=== PATIENT | male | born 1935 | race Asian ===

== ENCOUNTER → 2019-12-08 | Outpatient (CLI) | payer OTHER | LOC: SJCVC 10:15 | PROVIDERS: ATTEND Internal Medicine Cardiovascular Disease | DX: I11.0 Hypertensive heart disease with heart failure (principal); I50.32 Chronic diastolic (congestive) heart failure; R94.31 Abnormal electrocardiogram [ECG] [EKG]; I44.0 Atrioventricular block, first degree; E78.00 Pure hypercholesterolemia, unspecified; R60.9 Edema, unspecified; I42.9 Cardiomyopathy, unspecified; E78.5 Hyperlipidemia, unspecified; M19.90 Unspecified osteoarthritis, unspecified site; G20 Parkinson's disease; Z87.891 Personal history of nicotine dependence ==

== ENCOUNTER 2020-03-24 09:54 | Inpatient (IN) | payer OTHER ==
[~2020-03-24] VITALS: Ht 185.4 cm; Wt 104.4 kg
[2020-03-24 10:39] VITALS: BP 124/62
[2020-03-24 10:57] LABS: ABSOLUTE NEUTROPHILS 7.2 thou/uL (1.4-8.2); BASOPHILS 0.3 % (0.0-2.0); EOSINOPHILS 0.1 % (0.0-3.0); HEMATOCRIT 39.2 % (42.0-52.0); HEMOGLOBIN 13.4 gm/dL (14.0-18.0); LYMPHOCYTES 16.6 % (24.0-44.0); MCH 30.5 pg (26.0-34.0); MCHC 34.1 g/dL (28.0-37.0); MCV 89.5 fL (80.0-100.0); MONOCYTES 11.7 % (1.0-8.0); PLATELET COUNT 133 thou/uL (150-400); POLYS 71.3 % (36.0-66.0); RBC 4.38 mil/uL (4.50-6.00); RDW 14.5 % (10.5-14.5); WBC 10.1 thou/uL (4.0-11.0)
[2020-03-24 11:08] LABS: CALCIUM 9.9 mg/dL (8.5-10.1); CREATININE 1.8 mg/dL (0.7-1.3)
[2020-03-24 11:18] LABS: ALBUMIN 3.4 g/dL (3.4-5.0); TOTAL BILIRUBIN 1.7 mg/dL (0.2-1.0)
[2020-03-24 11:22] LABS: TROPONIN-I 0.86 ng/mL (<0.06)
--- NOTE | 2020-03-24 12:27 | EKG ---
[address] [address] ELECTROCARDIOGRAM REPORT Name: ENE MANZO Room #: 170-5 ADM IN M.R.#: [id number] Admission: 03/24/20 Attend Phys: Patrick Dorantes MD Discharge: Date of : 31 Report #: [id number] [facility] ED Test Date: 2020-03-24 Test Time: 10:53:37 Pat Name: ENE MANZO Department: Room: 170 Gender: M Maintenance Inspector: TORI : 1935 Requested By: Bennie Grace Order Number: [id number] MD: Arcadio Lopez Measurements Intervals [place] Rate: 84 P: 42 NV: 198 QRS: -102 QRSD: 169 T: 6 QT: 399 QTc: 472 Interpretive Statements Sinus rhythm RBBB and LAFB No previous ECG available for comparison Electronically Signed On 03-24-2020 12:27:33 REHABILITATION COORDINATOR by Arcadio Lopez [email or web address] <ELECTRONICALLY SIGNED> By: Arcadio Lopez MD, [facility] 03/24/20 1227 1053 1053 Arcadio Lopez MD, FACC /EPI
[2020-03-24] MEDS ORDERED: CARBIDOPA-LEVO1 EAC8 PO (12:30)
[2020-03-24] MEDS ORDERED: CARVEDILOL12.5 MG PO (12:30)
[2020-03-24] MEDS ORDERED: OLMESARTAN MEDOX5 MG PO (12:31)
[2020-03-24] MEDS ORDERED: ROPINIROLE HCL0.5 MG PO (12:31)
[2020-03-24] MEDS ORDERED: LOPRESSOR50 PO (12:31)
[2020-03-24] MEDS ORDERED: DONEPEZIL HCL 55 M1 PO (12:32)
[2020-03-24] MEDS ORDERED: LIPITOR 40 MG T40 M1 PO (12:32)
[2020-03-24] MEDS ORDERED: IMDUR 60 MG TAB60 M1 PO (12:32)
[2020-03-24] MEDS ORDERED: TORSEMIDE5 MG PO (12:33)
[2020-03-24] MEDS ORDERED: NITROSTAT0.4 M1 SUBLING (12:33)
[2020-03-24 13:48] LABS: FOLIC ACID 18.6 ng/mL (8.6-58.9)
[2020-03-24 15:10] LABS: HEMOGLOBIN 13.6 gm/dL (14.0-18.0); MCH 30.1 pg (26.0-34.0); MCHC 33.2 g/dL (28.0-37.0); MCV 90.6 fL (80.0-100.0); RBC 4.52 mil/uL (4.50-6.00); RDW 14.9 % (10.5-14.5); WBC 9.6 thou/uL (4.0-11.0)
[2020-03-24 15:27] LABS: APTT 81.6 Seconds (24.5-32.8); INR 1.1; PROTIME 11.5 Seconds (9.3-11.4)
--- NOTE | 2020-03-24 16:03 | NUR ---
DR. WHELAN PGD AT 1520 WITH NO RETURN CALL.
[2020-03-24 20:59] VITALS: BP 120/44
[2020-03-24 21:11] VITALS: BP 120/44
[2020-03-24 21:40] VITALS: BP 145/66
[2020-03-24 23:38] VITALS: BP 147/75
--- NOTE | 2020-03-24 23:45 | NUR ---
PT ADMITTED TO ROOM 207, CONDOM CATHETER PLACED AFTER PT C/O BEING INCON'T, VSS, BG TAKEN, EDUCATION DONE QUESTIONS ANSWERED, TALKED TO PT'S SPOUSE AND UPDATED AND GIVEN CONTACT INFORMATION, HEPARIN GTT INFUSING IN R FA, NO C/O PAIN, WILL CON'T TO MONITOR PER PPOC.
[2020-03-25] VITALS (15 sets, daily range): BP systolic 111–154; BP diastolic 60–83
[2020-03-25 05:30] LABS: ABSOLUTE NEUTROPHILS 7.2 thou/uL (1.4-8.2); BASOPHILS 0.1 % (0.0-2.0); HEMATOCRIT 41.6 % (42.0-52.0); HEMOGLOBIN 14.2 gm/dL (14.0-18.0); LYMPHOCYTES 18.5 % (24.0-44.0); MCH 30.7 pg (26.0-34.0); MCHC 34.1 g/dL (28.0-37.0); MCV 90.2 fL (80.0-100.0); MONOCYTES 3.1 % (1.0-8.0); PLATELET COUNT 147 thou/uL (150-400); POLYS 78.3 % (36.0-66.0); RBC 4.61 mil/uL (4.50-6.00); WBC 9.2 thou/uL (4.0-11.0)
[2020-03-25 05:40] LABS: CREATININE 1.8 mg/dL (0.7-1.3); MAGNESIUM 2.3 mg/dL (1.8-2.4); POTASSIUM 4.2 mmol/L (3.5-5.1)
[2020-03-25 05:43] LABS: CHOLESTEROL 126 mg/dL (<200); HDL CHOLESTEROL 43 mg/dL (>40); LDL CHOLESTEROL 70 mg/dL (<100); TC:HDL 2.9 Ratio (Not establshd); TRIGLYCERIDE 67 mg/dL (<150); VLDL 13 mg/dL (<40)
[2020-03-25 05:58] LABS: SERUM ASSESSMENT Clear
--- NOTE | 2020-03-25 10:19 | 2DMMODE ---
[facility] [place] [address] 2 D/M-MODE ECHOCARDIOGRAM Name: ENE MANZO Room #: 207-P ADM IN M.R.#: [id number] Admission: 03/24/20 Attend Phys: Patrick Dorantes MD Discharge: Date of : 31 Report #: [id number] THIS REPORT FOR: cc: Dinora Bullock MD, Julie MD Park,George Palomares MD ~ APPROVED REPORT Study performed: 03/25/2020 08:18:50 EXAM: Comprehensive 2D, Doppler, and color-flow Echocardiogram Patient Location: Bedside Room #: 207 Status: routine BSA: 2.29 HR: 72 bpm BP: 135/67 mmHg Rhythm: RBBB/Frequent PVCs Other Information Study Quality: Adequate/patient flat on back Technically limited study due to heavy breathing lung artifact. Indications Short of breath, chest pain, elevated troponin, NSTEMI, diastolic HF. Hx: HTN, DM. 2D Dimensions RVDd: 49.31 mm IVSd: 14.37 (7-11mm) LVOT Diam: 23.32 (18-24mm) LVDd: 50.25 mm PWd: 13.61 (7-11mm) Ascending Ao: 36.54 (22-36mm) LVDs: 34.20 (25-40mm) Aortic Root: 35.93 mm Volumes Left Atrial Volume (Systole) Single Plane 4CH: 48.20 mL Single Plane 2CH: 46.76 mL LA ESV Index: 22.00 mL/m2 Aortic Valve AoV Peak Zak.: 1.79 m/s [facility] [address] [place] [address] 2 D/M-MODE ECHOCARDIOGRAM Name: ANAISJENAROENE Room #: 207-P [facility] IN ..#: [id number] Admission: 03/24/20 Attend Phys: Patrick Dorantes MD Discharge: Date of : 31 Report #: [id number] Peak Gr.: 13.11 mmHg LVOT Max P.24 mmHg LVOT Max V: 0.90 m/s KJ Vmax: 2.14 cm2 Mitral Valve E/A Ratio: 0.7 MV Decel. Time: 218.52 ms MV E Max Zak.: 0.69 m/s MV A Zak.: 0.98 m/s MV PHT: 63.37 ms IVRT: 107.27 ms Pulmonary Valve PV Peak Zak.: 0.99 m/s PV Peak Gr.: 3.89 mmHg Tricuspid Valve TR Peak Zak.: 2.83 m/s RAP Estimate: 15.00 mmHg TR Peak Gr.: 32.10 mmHg PA Pressure: 47.00 mmHg Left Ventricle The left ventricle is normal size. Paradoxical septal motion consistent with conduction abnormality. Mild concentric left ventricular hypertrophy. Left ventricular systolic function is normal. LVEF is 55%. Mild diastolic dysfunction is present (impaired relaxation pattern). Right Ventricle Right ventricle is mildly dilated. The right ventricular systolic function is normal. Atria The left atrium size is normal. Right atrium is mildly dilated. Aortic Valve The Aortic valve is moderately sclerotic. No aortic regurgitation is present. There is no aortic valvular stenosis. Mitral Valve Mitral valve leaflets are mildly calcified. There is no mitral valve regurgitation noted. No evidence of mitral valve stenosis. Tricuspid Valve The tricuspid valve is normal in structure. Mild tricuspid regurgitation. Estimated PAP is 38mmHg. [facility] [address] [place] [address] 2 D/M-MODE ECHOCARDIOGRAM Name: ENE MANZO Room #: 207-P [facility] IN M.R.#: [id number] Admission: 03/24/20 Attend Phys: Patrick Dorantes MD Discharge: Date of : 33 Report #: [id number] Pulmonic Valve The pulmonary valve is normal in structure. There is no pulmonic valvular regurgitation. Great Vessels The aortic root is normal in size. The ascending aorta is normal in size. IVC is dilated and collapses <50% with inspiration. Pericardium There is no pericardial effusion. <Conclusion> The left ventricle is normal size. Mild concentric left ventricular hypertrophy. Left ventricular systolic function is normal. Mild diastolic dysfunction is present (impaired relaxation pattern). Right ventricle is mildly dilated. The left atrium size is normal. The Aortic valve is moderately sclerotic. Mitral valve leaflets are mildly calcified. Mild tricuspid regurgitation. Estimated PAP is 38mmHg. <ELECTRONICALLY SIGNED> By: George Arrieta MD 03/25/20 1018 1018 1018 George Arrieta MD /INF
--- NOTE | 2020-03-25 15:56 | CATHLAB ---
[facility] [place] [address] INVASIVE PROCEDURE REPORT Name: ENE MANZO Room #: 207-P ADM IN M.R.#: [id number] Admission: 03/24/20 Attend Phys: Patrick Dorantes MD Discharge: Date of : 33 Report #: [id number] THIS REPORT FOR: cc: Dinora Bullock MD, Julie MD Park, Jin S. MD ~ APPROVED REPORT Study performed: 03/25/2020 11:42:00 Patient Details Patient Status: In-Patient Room #: 207 The patient is a 85 year-old male Event Personnel George Arrieta Soldering Machine Tender, Mallory Benson RN RN, Charu Osborn RN RN, Bradley Witt RTR Scrmat, Isaura Bryan RTR Monitor Procedures Performed Left Heart Cath w/or w/o Coronaries [id number] [facility] Art Access - R femoral artery* Hemostasis w/ Mynx 94990 Initial Mod Sed Same Phys/QHP Gr5y 988352 37199 Mod Sed Same Phys/QHP Ea 895855 Indication Non-STEMI , Dyspnea, Chest pain Risk Factors Hypercholesterolemia, Hypertension Procedure Narrative The Right Groin^ was infiltrated with 1% Lidocaine subcutaneous anesthesia. A PINNACLE 5FR Sheath #[id number] sheath was inserted into the RFA^. Coronary angiography was performed using coronary diagnostic catheters. The right coronary system was accessed and visualized with a JR4 catheter. The left coronary system was accessed and visualized with a JL4 catheter. The left ventricle was accessed and visualized with a JR4 catheter. Left ventricular/Aortic Valve gradient assessed via catheter pullback. Left ventriculogram was performed in 30 degree projection. Closure device was deployed with a Fr MYNXGRIP 5F #[id number]. There was no hematoma. Intraoperative Conscious Sedation [facility] [address] [place] [address] INVASIVE PROCEDURE REPORT Name: ENE MANZO Room #: 207-P [facility] IN ..#: [id number] Admission: 03/24/20 Attend Phys: Patrick Dorantes MD Discharge: Date of : 33 Report #: [id number] Sedation start time: 12:27 Case end Time: 13:07 Fentanyl 50 mcg Versed 1 mg Fluoro Time: 3.20 minutes Dose: DAP 6405.83 cGycm2 723 mGy Contrast Type and Amount: Visipaque 90 ml Coronary Angiography The patient's coronary anatomy is left dominant. Diagnostic Cath Left Main Left main artery is a large-caliber vessel, patent with no flow-limiting lesions. LAD The LAD is a moderate to large caliber vessel, traverses the anterior wall and wraps around the apex. There is mild diffuse disease in the proximal and mid segments, 20%. Diagonal 1 This is a moderate-sized caliber vessel, patent with no flow-limiting lesions. Circumflex This is a moderate-sized caliber vessel, dominant as it supplies the left PDA. There is mild to moderate diffuse disease in the distal segment, 40%. OM1 This is a patent vessel, with no flow-limiting lesions. OM2 This is a moderate-sized caliber vessel, with mild disease proximally. Divides into 2 branches. OM3 This is a small caliber vessel, patent with no flow-limiting lesions. L PDA Appears to be occluded in the mid segment. Right Coronary This is a small, nondominant vessel with no flow-limiting lesions. Left Ventriculography Left Ventriculography was not performed. Ejection Fraction was >55% based off patient's Echocardiogram. An LVEDP was measured and there is no gradient across the outflow tract. Hemodynamics The aortic pressure is 114/66 mmHg with a mean of 87 mmHg. The left ventricular pressure is 135/11 mmHg with a mean of mmHg. The left ventricular end diastolic pressure is 25 mmHg. Pullback from the left ventricle to the aorta revealed no gradient across the aortic valve. Conclusion 1. There is mild disease in the proximal and mid segments of the [address] [address] INVASIVE PROCEDURE REPORT Name: ANAISENE Room #: 207-P [facility] IN M.R.#: [id number] Admission: 03/24/20 Attend Phys: Patrick Dorantes MD Discharge: Date of : 33 Report #: [id number] LAD. 2. The left circumflex artery is a dominant vessel, with moderate diffuse disease in the distal segment. 3. There appears to be an occlusion in the mid segment of the left PDA, probable cause of the non-ST elevation MS. 4. There is normal LV systolic function. 5. Recommend aggressive risk factor management and guideline directed medical therapy. <ELECTRONICALLY SIGNED> By: George Arrieta MD 03/25/20 1556 1556 1556 George Arrieta MD /INF
--- NOTE | 2020-03-25 16:00 | NUR ---
Case opened to follow for dc planning. Pt admitted from home with spouse for NSTEMI. 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 PT/OT angela pending. Spoke with pt's spouse Maya and she reports he is very weak and is normally able to tx and walk with a rwalker in side their ranch style home. They have 4 steps to enter. No other dme. He was at [facility] about 5 months ago after having pneumonia and he came home with hh but she can not recall the agency name. She is interested in him going to skilled rehab again as he is "very weak". She would like a referral sent to [facility]. Dc airport planner to fax referral. Dc timeframe 1-2 day pending his plan of care. Message sent to the [facility] stanley Aleman. Will follow.
--- NOTE | 2020-03-25 16:31 | NUR ---
FAXED REFERRAL TO [facility] RECEIVED CONFIRMATION AND LEFT MSG WITH ADM AT FACILITY. STILL NEED TO FAX THERAPY NOTES WILL F/U WITH FACILITY ON SATURDAY.
--- NOTE | 2020-03-25 20:19 | NUR ---
PT CARE ASSUMED AT 0700. ASSESSMENTS CHARTED. MEDICATIONS CHARTED. LFA IV. CONDOM CATHETER. PT TO MUSIC PUBLICIST AT 1125. RT GROIN, MYNX CLOSURE, C/D/I. HEMOSTASIS 1330. NPO. HEPARIN D/C'D.
[2020-03-26 03:03] LABS: HEMATOCRIT 40.5 % (42.0-52.0); HEMOGLOBIN 13.3 gm/dL (14.0-18.0); MCH 29.5 pg (26.0-34.0); MCHC 32.8 g/dL (28.0-37.0); MCV 90.1 fL (80.0-100.0); RBC 4.5 mil/uL (4.50-6.00); RDW 15.1 % (10.5-14.5)
[2020-03-26 03:20] LABS: CALCIUM 9.2 mg/dL (8.5-10.1); CREATININE 1.4 mg/dL (0.7-1.3); POTASSIUM 5.1 mmol/L (3.5-5.1)
[2020-03-26 04:30] VITALS: BP 126/70
--- NOTE | 2020-03-26 04:50 | NUR ---
PT IS ALERT AND ORINTED X4. LUNGS ARE CLEAR. DENIES ANY PAIN ISSUES AT THIS TIME. RIGHT MINYX GROIN SITE NO EDMA OR BRUISION NOTED. CONTINUE ONGOING NURSING CARE AT THIS TIME WITH POSSIBLE DISCHARGE TODAY. CALL LIGHT WITHIN REACH IF NEEDS ASSISTANCE. NO ISSUES OR CONCERNS NOTED AT THIS TIME
[2020-03-26 08:00] VITALS: BP 139/80
[2020-03-26 11:55] VITALS: BP 100/52
[2020-03-26 16:50] VITALS: BP 109/46
--- NOTE | 2020-03-26 19:47 | NUR ---
ASSUMED CARE OF PT AT SHIFT CHANGE. ASSESSMENTS CHARTED. MEDS GIVEN PER MAY. PT A&OX3-4. NO C/O PAIN OR DISTRES DURING SHIFT. PLAN TO GO TO [facility] AT ON SATURDAY.
[2020-03-26 20:00] VITALS: BP 152/77
[2020-03-27 03:14] LABS: ABSOLUTE NEUTROPHILS 9.1 thou/uL (1.4-8.2); BASOPHILS 0.1 % (0.0-2.0); HEMATOCRIT 38.9 % (42.0-52.0); LYMPHOCYTES 17.3 % (24.0-44.0); MCH 29.7 pg (26.0-34.0); MCHC 33.4 g/dL (28.0-37.0); MCV 89.1 fL (80.0-100.0); MONOCYTES 10.4 % (1.0-8.0); PLATELET COUNT 166 thou/uL (150-400); POLYS 72.2 % (36.0-66.0); RBC 4.37 mil/uL (4.50-6.00); RDW 15.1 % (10.5-14.5); WBC 12.6 thou/uL (4.0-11.0)
[2020-03-27 03:40] LABS: ALBUMIN 2.8 g/dL (3.4-5.0); CALCIUM 9.2 mg/dL (8.5-10.1); CREATININE 1.5 mg/dL (0.7-1.3); MAGNESIUM 2.1 mg/dL (1.8-2.4); PHOSPHORUS 1.4 mg/dL (2.5-4.9); POTASSIUM 4.3 mmol/L (3.5-5.1); TOTAL BILIRUBIN 1.2 mg/dL (0.2-1.0); TOTAL PROTEIN 7.2 g/dL (6.4-8.2)
--- NOTE | 2020-03-27 03:57 | NUR ---
PT IS ALERT AND ORIENTED X 3 FORGETFULL AT TIMES WITH CARE. LUNGS ARE CLEAR ON ROOM AIR GETS BREATHING TREATMENTS. RIGHT GROIN SITE CLEAN DRY INTACT NO HEMATOMA NOTED. DENIES ANY COMPLAINTS OF PAIN. PT IS INCONTINENT HAS A CONDOM CATH ON FOR CARE. ABDOMEN IS ROUND BOWEL SOUNDS ACTIVE. CALL LIGHT WITHIN REACH IF NEEDS ASSISTANCE PER NURSING
[2020-03-27 04:00] VITALS: BP 123/72
[2020-03-27 07:55] VITALS: BP 112/60
[2020-03-27 11:40] VITALS: BP 117/63
--- NOTE | 2020-03-27 12:49 | EKG ---
[address] [address] ELECTROCARDIOGRAM REPORT Name: ENE MANZO Room #: 207- ADM IN M.R.#: [id number] Admission: 03/24/20 Attend Phys: Patrick Dorantes MD Discharge: Date of : 33 Report #: [id number] [facility] Test Date: 2020-03-27 Test Time: 09:06:31 Pat Name: ENE MANZO Department: Room: 207 P Gender: M [place]: EMMA : 1935 Requested By: Nilson Lnyn Order Number: [id number] MD: Nilson Lynn Measurements Intervals [place] Rate: 88 P: 42 KS: 199 QRS: -96 QRSD: 157 T: -14 QT: 407 QTc: 493 Interpretive Statements Sinus rhythm RBBB and LAFB Compared to ECG 03/24/2020 10:53:37 No significant changes Electronically Signed On 03-27-2020 12:48:45 TELEGRAPHIC TYPEWRITER OPERATOR by Nilson Lynn [email or web address] <ELECTRONICALLY SIGNED> By: Nilson Lynn MD, [facility] 03/27/20 1248 D: 01/905 5 Nilson Lynn MD, FACC /EPI
[2020-03-27 15:35] VITALS: BP 113/62
--- NOTE | 2020-03-27 18:07 | NUR ---
ASSUMED PATIENT CARE AT 0700. ALERT TO SELF. FLAT. POOR APPETITE. REFUSED OUT OF BED TO CHAIR. PULLING OFF EVERYTHING AT 1700. DENIES CHEST PIAN. NOT TOWARDS POC GOALS.
[2020-03-27 20:38] VITALS: BP 145/53
[2020-03-28 03:19] LABS: ABSOLUTE NEUTROPHILS 7.7 thou/uL (1.4-8.2); BASOPHILS 0.2 % (0.0-2.0); EOSINOPHILS 0.3 % (0.0-3.0); HEMATOCRIT 41.8 % (42.0-52.0); HEMOGLOBIN 13.8 gm/dL (14.0-18.0); LYMPHOCYTES 17.9 % (24.0-44.0); MCH 29.8 pg (26.0-34.0); MCV 90.3 fL (80.0-100.0); MONOCYTES 9.1 % (1.0-8.0); PLATELET COUNT 168 thou/uL (150-400); POLYS 72.5 % (36.0-66.0); RBC 4.63 mil/uL (4.50-6.00); RDW 15.2 % (10.5-14.5); WBC 12.4 thou/uL (4.0-11.0)
[2020-03-28 04:00] VITALS: BP 136/54
--- NOTE | 2020-03-28 04:28 | NUR ---
PATIENTS CARES WERE ASSUMED AT SHIFT CHANGE. PATIENT WAS ASSESSED AND MEDS WERE PASSED. PATIENT IS CONFUSED AND INCONTENT OF B&B. THIS PATIENT WAS GIVEN A BATH AND FRESH LINEN THIS SHIFT. WILL CONTINUE TO MONITOR. THE BED IS IN A LOW AND LOCKED POSITION
[2020-03-28 08:10] VITALS: BP 139/64
--- NOTE | 2020-03-28 10:37 | NUR ---
Patient sleeping soundly. Sp with . [facility] where patient was rec rec skilled care in past is only accepting COVID positive patients. agreeable to referral to [facility]. DC community development planner to fax referral.
--- NOTE | 2020-03-28 11:01 | NUR ---
Spoke with [facility] they are only accepti
[2020-03-28 11:15] VITALS: BP 101/59
[2020-03-28 15:50] LABS: ALBUMIN 2.4 g/dL (3.4-5.0); CALCIUM 9.5 mg/dL (8.5-10.1); CREATININE 1.6 mg/dL (0.7-1.3); MAGNESIUM 2.4 mg/dL (1.8-2.4); PHOSPHORUS 3.1 mg/dL (2.6-4.7); POTASSIUM 4.3 mmol/L (3.5-5.1); TOTAL BILIRUBIN 1.4 mg/dL (0.2-1.0)
[2020-03-28 16:25] VITALS: BP 132/95
--- NOTE | 2020-03-28 16:38 | NUR ---
spoke with regarding [facility] does not accept insurance. She is agreeable to referral to [facility]. She plans to talk to family regarding other facilities.
--- NOTE | 2020-03-28 19:44 | NUR ---
ASSUMED CARE OF PT AT SHIFT CHANGE. ASSESSMENTS CHARTED. MEDS GIVEN PER MAY. PT A&OX3, NOT SURE OF TIME. NO C/O PAIN OR DISTRESS DURING SHIFT. PT SLEPT MOST OF SHIFT. REMAINS INCONTINENT OF BOWEL AND BLADDER. CM STILL LOOKING FOR PLACEMENT. WILL CONTINUE TO MONITOR AND FOLLOW POC./
[2020-03-28 20:04] VITALS: BP 132/95
[2020-03-28 21:01] VITALS: BP 122/66
[2020-03-29] VITALS (7 sets, daily range): BP systolic 122–148; BP diastolic 63–82
--- NOTE | 2020-03-29 04:50 | NUR ---
PATIENTS CARES WERE ASSUMED AT SHIFT CHANGE. PATIENT WAS ASSESSED AND MEDS WERE PASSED. PATIENT IS A JOVIAL MAN AND HE HAS LITTLE NEEDS THIS SHIFT. HE DID SLEEP THE MAJORITY OF THIS SHIFT. HOURLY ROUNDS WERE DONE. THE BED IS IN A LOW AND LOCKED POSITION
[2020-03-29 09:45] LABS: CALCIUM 9.1 mg/dL (8.5-10.1); CREATININE 1.6 mg/dL (0.7-1.3); POTASSIUM 4.6 mmol/L (3.5-5.1)
--- NOTE | 2020-03-29 09:46 | NUR ---
FAXED REFERRAL TO [facility] RECEIVED CONFIRMATION AND LEFT MSG WITH REED IN ADM. DP TO FOLLOW.
--- NOTE | 2020-03-29 13:38 | NUR ---
Yesterday interested in [facility] however they are not accepting patients. [facility] evaled and accepting they are seeking auth. strongly prefers [facility] as she has concerns for COVID in skilled facilites. She has [employer] list to review.
--- NOTE | 2020-03-29 15:37 | NUR ---
PT ALERT AND ORIENTED TIMES FOUR. VSS. SR ON TELE. PT DENIES PAIN. PT WORKED WELL WITH PT/OT TODAY. PT TOLERATES MEDS AND MEALS. PT AT BEDSIDE FOR SOME PART OF THE SHIFT. PT PROGRESSING TOWRADS POC GOALS.
--- NOTE | 2020-03-29 16:33 | NUR ---
PATIENT ACCEPTED TO [facility] HAS WAIVED AUTHORIZATION PROCESS. PATIENT CAN TRANSFER TO ACUTE REHAB IN AM. LEFT MESSAGE FOR TO CALL ME.
--- NOTE | 2020-03-30 01:20 | NUR ---
PATIENTS CARES WERE ASSUMED AT SHIFT CHANGE. PATIENT WAS ASSESSED AND MEDS WERE PASSED. THIS PATIENT IS A PLEASENT MAN. HE DID SLEEP MOST OF THIS SHIFT. NO REQUEST MADE. HOURLY ROUNDS WERE DONE. THE BED IS IN A LOW AND LOCKED POSITION
[2020-03-30 03:37] VITALS: BP 148/78
[2020-03-30 05:20] LABS: HEMOGLOBIN 12.5 gm/dL (14.0-18.0); MCH 29.2 pg (26.0-34.0); MCV 88.5 fL (80.0-100.0); RBC 4.3 mil/uL (4.50-6.00); RDW 15.4 % (10.5-14.5); WBC 15.4 thou/uL (4.0-11.0)
[2020-03-30 07:26] VITALS: BP 143/86
[2020-03-30 07:53] LABS: CREATININE 1.5 mg/dL (0.7-1.3); POTASSIUM 4.6 mmol/L (3.5-5.1)
[2020-03-30] MEDS ORDERED: PREDNISONE 20 M20 M1 PO (07:53)
[2020-03-30] MEDS ORDERED: ADULT LOW DOSE81 MG PO (07:53)
[2020-03-30] MEDS ORDERED: PULMICORT0.5 MG/21 INH (07:53)
--- NOTE | 2020-03-30 10:25 | NUR ---
Paitent to discharge to [facility] today. Patient and notified. no further needs.
[2020-03-30 11:13] VITALS: BP 133/77
== END 2020-03-30 15:13 | DRG 280 ==
LOC: ER 09:54 → 2N 12:24 → EROBS 12:24 → 2N 21:16
PROVIDERS: Emergency Medicine; Internal Medicine; Internal Medicine Cardiovascular Disease; Nurse Practitioner; ADMIT Hospitalist; ATTEND Hospitalist
DX: I21.4 Non-ST elevation (NSTEMI) myocardial infarction (principal); J96.01 Acute respiratory failure with hypoxia; N17.9 Acute kidney failure, unspecified; I50.32 Chronic diastolic (congestive) heart failure; J44.1 Chronic obstructive pulmonary disease with (acute) exacerbation; I13.0 Hypertensive heart and chronic kidney disease with heart failure and stage 1 through stage 4 chronic kidney disease, or unspecified chronic kidney disease; E11.22 Type 2 diabetes mellitus with diabetic chronic kidney disease; N18.9 Chronic kidney disease, unspecified; R53.81 Other malaise; Z20.822 Contact with and (suspected) exposure to COVID-19; E78.5 Hyperlipidemia, unspecified; G20 Parkinson's disease; R35.0 Frequency of micturition; F02.80 Dementia in other diseases classified elsewhere, unspecified severity, without behavioral disturbance, psychotic disturbance, mood disturbance, and anxiety; M19.90 Unspecified osteoarthritis, unspecified site; K59.00 Constipation, unspecified; I25.10 Atherosclerotic heart disease of native coronary artery without angina pectoris; Z87.891 Personal history of nicotine dependence; Z79.82 Long term (current) use of aspirin; Z79.899 Other long term (current) drug therapy
CPT/HCPCS: 10081

== ENCOUNTER 2020-03-30 11:32 | Inpatient (IN) | payer OTHER ==
[~2020-03-30] VITALS: Ht 185.4 cm; Wt 116.9 kg
[~2020-03-30 11:32] MED LIST: ADULT LOW DOSE81 MG PO; CARBIDOPA-LEVO1 EAC8 PO; CARVEDILOL12.5 MG PO; DONEPEZIL HCL 55 M1 PO; IMDUR 60 MG TAB60 M1 PO; LIPITOR 40 MG T40 M1 PO; LOPRESSOR50 PO; NITROSTAT0.4 M1 SUBLING; OLMESARTAN MEDOX5 MG PO; PREDNISONE 20 M20 M1 PO; PULMICORT0.5 MG/21 INH; ROPINIROLE HCL0.5 MG PO; TORSEMIDE5 MG PO
[2020-03-30 15:02] VITALS: BP 147/68
--- NOTE | 2020-03-30 15:45 | NUR ---
NEW ADMISSION FROM . CAME BY WC WITH A HOSP STAFF. PT IS ALERT AND ORIENTATED AND AT TIMES FORGETFUL. ABLE TO FOLLOW COMMANDS, GOOD HAND WEBSPHERE PORTAL ARCHITECT BILATERALLY. R GROIN SITE POST CATH, DRSG DRY AND INTACT. NO HEMATOMA. DENIES ANY PAIN. ADMISSION AND ASSESSMENT DONE. VSS, WEIGHT AND HEIGHT TAKEN ON ADM. PT IS PLESANT AND COOPERATIVE. SLIGHTLY [place]. BLOOD SUGAR CHECKED WITH INSULIN GIVEN WITH DINNER. CALL LIGHT WITHIN REACH. BED ALARM ON. PT ORIENTATED TO ROOM AND PLACE. PT/OT/ST TO EVAL AND TREAT TOMMOROW. CONT TO MONITOR.
[2020-03-30 19:12] VITALS: BP 153/80
--- NOTE | 2020-03-31 00:26 | NUR ---
PT ALERT AND ORIENTED X 4. SITTING ON SIDE OF BED ALL EVENING. BLOOD SUGAR 169 AT HS. INSULIN GIVEN ORDERED. PT INCONT OF URINE AND DOES USE URINAL ALSO WITH ASSISTANCE. PT TAKES MEDS WITH WATER WITHOUT DIFFICULTY. PT DENIES PAIN OR DISCOMFORT. BED ALARM ON FOR SAFETY. PT CHECKED ON HOURLY ROUNDS.
[2020-03-31 05:38] LABS: HEMATOCRIT 39.1 % (42.0-52.0); HEMOGLOBIN 13.1 gm/dL (14.0-18.0); MCH 29.7 pg (26.0-34.0); MCHC 33.5 g/dL (28.0-37.0); MCV 88.7 fL (80.0-100.0); RBC 4.4 mil/uL (4.50-6.00); RDW 15.3 % (10.5-14.5); WBC 13.9 thou/uL (4.0-11.0)
[2020-03-31 05:45] LABS: CALCIUM 10.4 mg/dL (8.5-10.1); CREATININE 1.4 mg/dL (0.7-1.3); POTASSIUM 4.8 mmol/L (3.5-5.1)
--- NOTE | 2020-03-31 11:15 | NUR ---
ASSUMED CARE AT 0700. PT IS ALERT AND ORIENTATED. SLEPT FAIRLY WELL. DENIES ANY PAIN. NOTICED PT IS COUGHING WITH HIS BREAKFAST HORACIO WHILE HE WAS DRINKING. TOÑITO DRILLING ENGINEERING MANAGER NOTED, ORDERS TO RECEIVE A ST TO EVAL AND TREAT AND CXR. PT HAS INTERMITTENT INCONTINENCE. PARTICIPATES IN GAVINO THERAPIES. CONT TO MONITOR.
--- NOTE | 2020-03-31 14:19 | NUR ---
REHAB ASSESSMENT: PT ADMITTED TO ARU W/ DX OF PARKISON'S DISEASE W/MOBILITY DECLINE AND STEMI. PT'S , BANDAR, PRESENT AT BEDSIDE. PT LIVES HOME WITH . THERE ARE 3 STEP TO ENTER HOME AND 0 STAIRS INSIDE, "ALL ON ONE LEVEL." PT HAS CANE AND WALKER. PT HAS HAD SNK AT [facility]" IN THE PAST. BANDAR DOES NOT RECALL IF PT HAD HOME HEALTH IN THE PAST, SHE KEEPS REFERRING TO IN HOME MED [facility] PT'S INSURANCE, [employer], PROVIDED. BANDAR STATED PT WAS ABLE TO DRESS AND BATH HIMSELF PRIOR TO HOSPITALIZATION AND SHE DID COOKING AND CLEANING. BANDAR IS RETIRED AND HOME 01/10, SO TO [facility] AND STATED SHE WOULD BE PROVIDING CARE NEEDED.
[2020-03-31 19:26] VITALS: BP 167/96
--- NOTE | 2020-04-01 01:11 | NUR ---
PATIENT IS INCONTINENT OF URINE IF HE IS TOO SLEEPY TO REACH FOR URINAL. WHEN URINAL OFFERED AND HELD IN PLACE, HE IS ABLE TO VOID 50-75 CC AT A TIME. TURNING SELF IN BED. ABLE TO SWALLOW MEDS ONE AT A TIME WITH GULPS OF WATER.
[2020-04-01 02:06] LABS: GLYCOHEMOGLOBIN (HGB A1C) 6.3 % (4.8-5.6)
[2020-04-01 08:52] VITALS: BP 125/52
--- NOTE | 2020-04-01 12:19 | NUR ---
THIS AM, NOTED TO RUDY BLANCO MID LEVEL JAVA DEVELOPER THAT PT HAD INC IN SWALLOWING CONCERNS THIS AM, NOTABLE TREMORS, AND IS ON SINEMENT 25/100MG ONLY AT HS. PT IS MORE SLEEPY THIS AM, AND ALTHOUGH HE TOOK MEDS WELL, WAS REQUIRING CUES FOR SAFE SWALLOW PER EQUIPMENT MAINTENANCE SUPERVISOR.
--- NOTE | 2020-04-01 12:22 | NUR ---
EDEMA IS 1+ AT RLE, AND PT'S BNP IS ELEVATED. THIS WAS ALSO NOTED TO THE WINDOW SHADE CUTTER AND MOUNTER ON ROUNDS THIS AM.
[2020-04-01 20:00] VITALS: BP 131/61
--- NOTE | 2020-04-01 20:42 | NUR ---
BLOOD SUGAR 312 AT HS. MONTY BARILLAS NP NOTIFIED AND SHE WILL ENTER SLIDING SCALE ORDER FOR PT.
--- NOTE | 2020-04-02 01:02 | NUR ---
PT ALERT AND ORIENTED X 4. 02 SAT 95% AT HS. 02 REMOVED. BLOOD SUGAR 312 AT HS. MONTY BARILLAS NP NOTIFIED WITH ORDER RECEIVED FOR SLIDING SCALE INSULIN. ONLY 6 UNITS LISPRO GIVEN SINCE PT HAD BEEN LOW YESTERDAY MORNING. PT DENIES PAIN OR DISCOMFORT. BED ALARM ON FOR SAFETY. PT APPEARS TO BE SLEEPING ON HOURLY ROUNDS.
[2020-04-02 07:20] VITALS: BP 137/62
--- NOTE | 2020-04-02 10:02 | NUR ---
ASSUMED CARE AT 0700. PATIENT IS ALERT AND ORIENTED X3. PATIENT DC'S, BLENDING SUPERVISOR ARE EQUAL,BUT STILL HAS TREMORS. NEUROLOGY CONSULTED TO SEE TO ADJUST PARKINGSONS MED DOSE. LUNGS ARE DEMINISHED. ABD IS SOFT WITH BSX4. NO BM TODAY. MIRALAX GIVEN. PATIENT IS INCONTINENT OF URINE. UP IN BED FOR BREAKFAST ATE 5% PATIENT STATED "THE FOOD WAS COLD AND DIDN'T TASTE GOOD AND HE WASN'T EATING IT. INSULTIN HELD R/T NOT EATING. FALL AND SAFETY PROTOCOLS IN PLACE. DENIES PAIN. CONTINUES TO PROGRESS SLOWLY TOWARDS D/C GOALS. P.T. GOT PATIENT UP AND 02 AT 2L PER N/C APPLIED WHILE WALKING IN THE [place]. PATIENT CONTINUES TO HAVE L.E. EDEMA. WILL ENCOURAGE PATIENT TO ELEVATE HIS FEET WHILE UP WILL CONTINUE TO MONITER.
--- NOTE | 2020-04-02 14:48 | NUR ---
NEUROLOGY HERE TO SEE PATIENT. MYASTHENIA PANEL LAB ORDERED.
[2020-04-02 19:00] VITALS: BP 149/79
--- NOTE | 2020-04-03 01:37 | NUR ---
TURNING SELF TO SIDE WITH STAFF REMINDING HIM. HAS USED URINAL WITH SUCCESS TONIGHT 100 TO 150 CC AT A TIME. TAKING PILLS WITH GULPS OF WATER, DID MENTION THAT HE DID NOT WANT ANYTHING MORE TO EAT WHEN OFFERED HS SNACK BECAUSE HE WAS GIVEN SLIDING SCALE INSULIN
[2020-04-03 08:13] VITALS: BP 128/59
--- NOTE | 2020-04-03 13:23 | NUR ---
ASSUMED CARE OF PT AT 0720. PT IS A&O TO SELF, PLACE, & SITUATION. DENIES PAIN. IS ON ROOM AIR, BUT REQUIRES 2L WITH AMBULATION. IS STABLE. IS UP WITH 2 ASSIST, GB, WALKER. FALL PRECAUTIONS & HOURLY ROUNDING CONTINUED THIS SHIFT. LABS & VITALS REVIWED. PT IS ABLE TO TURN SELF IN BED. VOIDS PER URINAL. TAKES MEDS WHOLE 1 AT A TIME IN APPLESAUCE/ WITH THINS. PT IS CONTINENT & VOIDS PER URINAL. HAS BILAT LE EDEMA. PT IS CURRENTLY IN ROOM ASLEEP. [facility]. WILL CONTINUE TO MONITOR.
--- NOTE | 2020-04-03 17:56 | NUR ---
PT VOICED CONCERNS REGARDING PT'S EATING. STATED, "WHAT IS GOING ON WITH IS VOICE? I NOTICED THAT HE IS STARTING TO SOUND HOARSE. HE IS ALSO HOLDING FOOD IN HIS MOUTH & SEEMS TO NOT BE ABLE TO SWALLOW. HE HASN'T DONE THIS BEFORE. CAN YOU PLEASE HAVE THE DOCTOR TO CHECK IT OUT?" THIS NURSE INFORMED THE SPOUSE THAT I WOULD INFORM THE NIGHT NURSE OF THE CONCERNS TO PASS ON TO DAY SHIFT. I ALSO INFORMED HER THAT I HAD NOT OBSERVED PT POCKETING FOOD OR HAVING DIFFICULTY SWALLOWING. SPOUSE ALSO REPORTED THAT PT WAS DISCHARGED FROM A DIFFERENT HOSPITAL & WAS NOT GIVEN INSTRUCTIONS ON INSULIN OR HOW TO USE IT. SHE WOULD LIKE EDUCATION ON DIABETES MANAGEMENT WITH INSULIN IF THE PT IS GOING TO BE DISCHARGED HOME WITH IT.
[2020-04-03 19:14] VITALS: BP 107/82
--- NOTE | 2020-04-03 20:16 | NUR ---
PT WAS FOUND TO HAVE WOUNDS ON SROTUM. FIELD UNDERWRITER WAS CONSULTED. IMAGE TAKEN & IS IN THE CHART. SPOUSE IS AWARE & NIGHT NURSE WELL. WILL CONTINUE TO MONITOR. MOISTURE BARRIER APPLIED. PT WAS ALSO FOUND TO HAVE A HEALING WOUND ON RIGHT BUTTOCK. SPOUSE STATED, "HE HAD AN ABSCESS THERE. IT'S OLD".
--- NOTE | 2020-04-04 00:46 | NUR ---
PT ALERT AND ORIENTED X 3. VOIDING PER URINAL WITH ASSIST X 1. INCONT AT TIMES. BLOOD SUGAR 232 AT HS. INSULIN GIVEN ORDERED. SCROTUM RED WITH SORES. BARRIER CREAM APPLIED. PT DENIES PAIN OR DISCOMFORT. BED ALARM ON FOR SAFETY. PT APPEARS TO BE SLEEPING ON HOURLY ROUNDS.
--- NOTE | 2020-04-04 10:18 | NUR ---
WOUND CONSULT; THE SCROTUM IS ESCORIATED LIKELY MASD; MOISTURE ASSOCIATED DERMATITIS. THE PATIENT IS INCONTINENT OF URINE CURRENTLY QUETA A BRIEF. THE SCROTUM IS VERY TENDER TO THE PATIENT. PINK ESCORIATION PRESENT. NO OTHER S/S OF INFECTION. RECOMMEDNATIONS; 1-CLEANSE WITH WARM SOAPY WATER, DRY COMPLETLEY. APPLY ZGUARD BID/PRN. 2-(TURN PATIENT Q2H WHILE IN BED) AND (FLOAT HEELS) 3-LOW AIR LOSS BED PUMP. DISCUSSED WITH RN.
--- NOTE | 2020-04-04 15:44 | NUR ---
LATE ENTRY NOTE 03/31/20: INDEPENDENT WITH SELF-CARE COGNITION LEVEL: NEEDS HELP ADMISSION: EATING: SET-UP ORAL CARE: MIN A TOILETING: MIN A SHOWER/BATHING: MIN A UPPER BODY DRESSING: SUP A LOWER BODY DRESSING: MOD A FOOTWEAR: MOD A TOILET TRANSFER: MIN A DISCHARGE: EATING: CGA/SBA ORAL CARE: CGA/SBA TOILETING: CGA/SBA SHOWER/BATHE: CGA/SBA UPPER BODY DRESSING: CGA/SBA LOWER BODY DRESSING: CGA/SBA FOOTWEAR: CGA/SBA TOILET TRANSFER: CGA/SBA
[2020-04-04 19:30] VITALS: BP 136/64
--- NOTE | 2020-04-04 20:10 | NUR ---
Assumed Pt care at 0700. Pt was in his room awake. Pt was alert and oriented 3x. pT DENIES PAIN. ASSESSMENT ARE COMPLETED AND VSS. PT RECEIVED 4 UNIT OF INSULIN SHOT TWICE. ONE DURING LUNCH AND DINNER. PT WAS CALM AND CO-OPERATIVE. PT TOOK MEDICATION WHOLE WITH APPLE SAUCE. WOUND CARE TO SCROTUM Zguard was applied to scrotum. Pt can be incontinent at times. will continue to monitor.
--- NOTE | 2020-04-05 01:51 | NUR ---
INCOTINENCE CARE, PATIENT USES, BUT USUALLY SPILLS, URINAL. Z-GUARD AND A LITTLE BIT OF MOISTURE BARRIER TO SCROTUM. LEGS REMAIN EDEMATOUS. SSI FOR BLOOD SUGAR OF 185, DECLINES HS SNACK. O2 SAT= 91% PRIOR TO BREATHING TREATMENT, 96% AFTERWARDS.
[2020-04-05 07:15] VITALS: BP 128/70
--- NOTE | 2020-04-05 09:45 | NUR ---
ASSUMED CARE AT 0700. PATIENT IS ALERT AND ORIENTED X3. PATIENT DC'S, COMMUNITY ENGAGEMENT SPECIALIST ARE EQUAL. LUNGS ARE DEMINISHED. 02 AT 2L NEEDED TO KEEP SATS >94%. UP IN THE W/C FOR BREAKFAST. PLAN CXR AT 1100 R/T SOA. ABD IS SOFT WITH BSX4. PATIENT IS INCONTINENT OF URINE. FALL AND SAFETY PROTOCOLS IN PLACE. DENIES PAIN AT THIS TIME. Z GUARD TO SCROTUM. CONTINUES TO PROGRESS SLOWLY TOWARDS D/C GOALS. HAND TREMORS REMAIN UNCHANGED. WILL CONTINUE TO MONITER.
[2020-04-05 11:21] LABS: ABSOLUTE NEUTROPHILS 15.3 thou/uL (1.4-8.2); BASOPHILS 0.2 % (0.0-2.0); EOSINOPHILS 0.1 % (0.0-3.0); HEMATOCRIT 37.3 % (42.0-52.0); HEMOGLOBIN 12.2 gm/dL (14.0-18.0); LYMPHOCYTES 16.9 % (24.0-44.0); MCH 29.4 pg (26.0-34.0); MCHC 32.6 g/dL (28.0-37.0); MONOCYTES 4.6 % (1.0-8.0); PLATELET COUNT 268 thou/uL (150-400); POLYS 78.2 % (36.0-66.0); RBC 4.15 mil/uL (4.50-6.00); RDW 15.6 % (10.5-14.5); WBC 19.5 thou/uL (4.0-11.0)
[2020-04-05 11:30] LABS: CALCIUM 10.4 mg/dL (8.5-10.1); CREATININE 1.5 mg/dL (0.7-1.3); MAGNESIUM 2.5 mg/dL (1.8-2.4)
--- NOTE | 2020-04-05 15:20 | PLAN ---
[facility] [place] [address] REHAB UNIT PLAN OF CARE Name: ENE MANZO Room #: 511-P ADM IN M.R.#: [id number] Admission: 03/30/20 Attend Phys: Josias Delgado MD Discharge: Date of : 33 Report #: [id number] THIS REPORT FOR: cc: Dinora Bullock MD,Dinora Delgado,Josias Ledesma MD ~ DATE OF SERVICE: 04/01/2020 PROGRESS NOTE/OVERALL PLAN OF CARE Please see the progress note documentation as noted. SUBJECTIVE: The patient is in no distress today. He is pleasant. Discussion was held with he and his . He is afebrile. Blood pressure 167/96, pulse 86, respirations 20. Some evidence of masked facies. Upper extremities, no obvious cogwheeling is noted. Strength is probably a grade 3+/5. His lower extremities, no focal calf swelling. Strength is 3+ to 4-/5. He does have some tremors of his hands with some slow movement. He is mod assist with sit to stand. Gait, min assist 45 feet with a front-wheeled walker. ASSESSMENT: 1. Parkinson's disease with mobility decline. 2. Non-ST elevation myocardial infarction. 3. Acute respiratory failure with chronic obstructive pulmonary disease, acute exacerbation. 4. Acute kidney insufficiency. 5. Hypertension. 6. Hyperlipidemia. 7. Decreased appetite. 8. Prior history of dementia. PLAN: The overall plan of care is based on the preadmission screen and information garnered from therapy assessments. 1. Estimated length of stay is probably going to be at least 10-14 days. 2. Medical prognosis is reasonably good. 3. Anticipated interventions includes the interdisciplinary acute inpatient rehabilitation program. 4. Anticipated functional outcomes would be for the patient to become modified independent with transfers, mobility, ADLs, and cognition, so that he can hopefully return back to the home setting. 5. Discharge destination would be back home with . She notes she is retired and assisted him before. She indicated he did need some assistance with his urinary issues and they utilized adult diapers prior. 6. Expected therapy by discipline includes PT, OT and speech 1 hour each five days a week throughout the duration of the acute inpatient rehabilitation stay. [address] [address] REHAB UNIT PLAN OF CARE Name: ENE MANZO Room #: 511-P [facility] IN .R.#: [id number] Admission: 03/30/20 Attend Phys: Josias Delgado MD Discharge: Date of : 33 Report #: [id number] The patient's prognosis for significant practical improvement within a reasonable period of time appears good. Given the patient's complex medical condition and risk of further medical complication, rehabilitation services could not be safely provided at a lower level of care, such as a mcc facility. Please see the progress note documentation as well. <ELECTRONICALLY SIGNED> By: Josias Delgado MD 04/05/20 1520 1458 [id number] Josias Delgado MD /garth
[2020-04-05 18:09] LABS: URINE BILIRUBIN NEGATIVE (Negative); URINE BLOOD NEGATIVE (Negative); URINE CLARITY CLEAR; URINE COLOR YELLOW; URINE GLUCOSE-RANDOM* NEGATIVE (Negative); URINE KETONES NEGATIVE (Negative); URINE LEUKOCYTES-REFLEX NEGATIVE (Negative); URINE NITRITE-REFLEX NEGATIVE (Negative); URINE PROTEIN (DIPSTICK) NEGATIVE (Negative); URINE SPECIFIC GRAVITY 1.025 (1.005-1.035)
[2020-04-05 19:42] VITALS: BP 139/78
--- NOTE | 2020-04-06 03:39 | NUR ---
ASESSED PT. EVENING MEDS GIVEN AND PT GISSEL IT WELL. ON 2L OF OXYGEN. PT INCONTINENT. URINAL AT BEDSIDE. TREMORS NOTED. FALL PREC IN PLACE. MIRALAX GIVEN THIS SHIFT. NO BM. FALL PREC IN PLACE AND CALL LIGHT AT REACH WILL CONT TO MONITOR.
--- NOTE | 2020-04-06 12:29 | HC ---
[facility] [place] [address] CONSULTATION Name: ENE MANZO Room #: 511-P ADM IN M.R.#: [id number] Admission: 03/30/20 Attend Phys: Josias Delgado MD Discharge: Date of : 33 Report #: [id number] THIS REPORT FOR: cc: Dinora Bullock MD, Julie MD Khosla,Marquis Laura MD ~ DATE OF SERVICE: 04/02/2020 HISTORY OF PRESENT ILLNESS: This is an 85-year-old male patient who was seen by me for readjustment of his Parkinson medication. The patient appeared to have a pretty significant memory deficit. A lot of history is by checking the records as well as talking to the nurse. This patient was admitted to the Cardiology Unit and he does have an underlying Parkinson's disease and dementia. He had metabolic disturbances. Now when he worked with PT, his oxygen saturation drops and he also has a tremor. There is not a correlation between oxygen drop and tremor, as I understand, tremor intermittently become better. Reviewing the record, it looks like he is on Sinemet as well as Requip. He is only on a small dose of Sinemet. REVIEW OF SYSTEMS: Positive for chest pain, renal failure, Parkinson's disease, dementia, hypertension, and hyperlipidemia. He denies any new eye, ENT, respiratory, GI, , musculoskeletal, constitutional, dermatological, hematological, psychiatric, throat, allergic symptom associated with present symptomatology. PAST MEDICAL HISTORY: Positive for Parkinson's disease and dementia. FAMILY HISTORY: Unremarkable. SOCIAL HISTORY: He says he does not drink alcohol or smoke on a regular basis. PHYSICAL EXAMINATION: Indicates he is alert. He is responsive. He could not tell me what month it is. His speech looks intact. His memory and fund of knowledge is poor. Cranial nerve examination looks like he is complaining of hoarseness of voice. He intermittently becomes better. He has reasonable strength in all 4 extremities. His tone does not appear to be markedly increased. He does have mild tremor on both sides. His reflexes are somewhat diminished, but I do not know what the baseline is. He was able to appreciate the position sense on both sides. He does not have any abnormality of [id number]. I could not look at the patient's fundus. He is a well-built individual who does not have any dysmorphic features of eyes, ears and face. His pulses are palpable. His vision looks adequate. His blood pressure is 137/62, respirations 18, pulse is 77, and temperature is 98.3. LABORATORY DATA: White count is 13.9. GFR is 48. He did not have any imaging [address] [address] CONSULTATION Name: ENE MANZO Room #: 511-P [facility] IN M.R.#: [id number] Admission: 03/30/20 Attend Phys: Josias Delgado MD Discharge: Date of : 33 Report #: [id number] studies. His cardiac examination is unremarkable. No respiratory difficulty was noticed. IMPRESSION: The patient does have what looks like some tremor. He has only small dose of Sinemet, although he is also on Requip. Sinemet dose can be increased, but more worrisome feature is that he is having hoarseness and he does have oxygen saturation problem that should be addressed. I will suggest an ENT consult to look at his vocal cord to make sure that is not contributing to his problem and I will suggest doing myasthenia markers on him. I did order a myasthenia marker, but I do not know if an ENT physician comes here or not, but I will suggest doing that. Please call if that comes out to be positive, otherwise, Sinemet dose can be increased up to 1 p.o. t.i.d. if the patient's symptom does not improve with improving the desaturation and ENT does not find anything. Thank you very much for this referral and if you have any question, please feel free to contact me. <ELECTRONICALLY SIGNED> By: Marquis Martinez MD 04/06/20 1229 1428 1704 Marquis Martinez MD /nt
--- NOTE | 2020-04-06 12:52 | NUR ---
Team conference meeting yesterday. Maya updated via phone today. Pt progressing with therapy: mod assist for sit to stand, slightly retopulsive, mod assist for le dressing/bathing, mod assist 70' with FWW, mech soft diet with thin liquids, decreased insight into his deficits and some problem solving diff, follows commands and his mood is good, incont of urine and difficulty using the urinal d/t tremors. Neuro has seen him d/t this and made no med changes. Reteam on Wednesday 04/12 with possible dc to home with hh on Saturday04/15/19. denies preference for hh referral as long as they are in network with [facility]. She notes that he has used [facility] in the past but she was advised they are on diversion. The pt has a FWW in the home. Dc conference planner to fax referrals to [facility] providers to see who can accept. He will need PT/OT/ST and RN. Will follow.
--- NOTE | 2020-04-06 14:39 | NUR ---
WOUND CARE F/U; THE PATIENT IS INCONTINENT OF URINE. 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 DISCUSSED WITH THE FOREIGN SERVICE TEACHER AND SHE STATED SHE WOULD TRY AN EXTERNAL CATHETER. RECOMMENDATIONS; -EXTERNAL CATHETER. -D/C ZGUARD AND CHANGE TO ANTIFUNGAL BARRIER CREAM, BID/PRN.
--- NOTE | 2020-04-06 15:53 | NUR ---
RN ASSUMED PT'S CARE AT 0700AM, PT IS A&OX2 ( PERSON AND PLACE ), PT CAN FOLLOW COMMANDS, PT IS ON O2 2L/MIN/NC, PT'S VS ARE STABLE, PT GETS UP TO W/C WITH ASSIST, PT NEEDS HELP ADL, PT DENIES SOB AND PAIN AT THIS TIME.
[2020-04-06 20:20] VITALS: BP 134/61
--- NOTE | 2020-04-07 01:01 | NUR ---
04-06-20 CARE TRANSFERRED 1914. PT AAOX2, VSS, RR EVEN AND NONLABORED ON 2L O2. PT DENIES ANY PAIN. PT PRESENTS PLEASANT, CALM AND WILL ENGAGE IN VERBAL COMMUNICATION. ZERO S/S OF ACUTE DISTRESS, PT WILL CONTINUE TO BE MONITOR.
--- NOTE | 2020-04-07 11:30 | NUR ---
FAXED REFERRAL TO [facility] SPOKE WITH [facility] IN INTAKE THEY ARE OUT OF NETWORK WITH THIS SPECIFIC [employer] POLICY.
[2020-04-07 14:19] VITALS: BP 134/61
[2020-04-07 15:23] LABS: HEMATOCRIT 34.7 % (42.0-52.0); HEMOGLOBIN 11.5 gm/dL (14.0-18.0); MCH 29.8 pg (26.0-34.0); MCHC 33.1 g/dL (28.0-37.0); MCV 90.2 fL (80.0-100.0); RBC 3.84 mil/uL (4.50-6.00); RDW 15.5 % (10.5-14.5); WBC 11.5 thou/uL (4.0-11.0)
[2020-04-07 15:32] LABS: CALCIUM 9.4 mg/dL (8.5-10.1); CREATININE 1.4 mg/dL (0.7-1.3); POTASSIUM 4.9 mmol/L (3.5-5.1)
--- NOTE | 2020-04-07 20:14 | NUR ---
SIGNIFICANT WEAKNESS AND SHORTNESS OF BREATH WITH MINIMAL ACTIVITY THIS SHIFT-X-RAY CONFIRMING PNEUMONIA AND MILD ILLEUS-02 PER NC 2.5 LITERS AND AT REST SATS IN MID 90'S-DESATS TO 91=92 PERCENT WHEN UP. AFEBRILE-LOOSE NONPRODUCTIVE COUGH AND COURSE LUNG SOUNDS-BREATHING TREATMENTS PER RT-GI9VEN RECTAL SUPPOSITORY AT APPROX 1500 WITH LARGE LOOSE BM VIA BEDPAN X3 SO FAR THIS PM-SAline LOCK PATENT IN RIGHT ANTICUBITAL-IV ABX STARTED PER ORDER-DIET CHANGED TO THICKNED LIQUIDS/PUREED PER SPEECH. ACCUCHECKS ACHS-NO SS INSULIN REQUIRED THIS SHIFT
[2020-04-07 20:17] VITALS: BP 128/83
[2020-04-07 21:08] VITALS: BP 128/83
--- NOTE | 2020-04-08 02:21 | NUR ---
PT CARE ASSUMED WITH PT IN BED.PT IS A/O X3.PT IS UP WITH MAX ASSIST X2.PT LUNGS WITH CRACKLES AND HAS PNEUMONIA.PT USES BEDPAN AND IS INCONTINENT TO B/B.PT IS ON 3L OF OS VIA NC.PT IS ACCUCHECK ACHS AND HAD 4UNITS OF INSULIN HS.PT ON PUREED DIET AND NECTAR THICK LIQUIDS.WILL CONTINUE TO MONITOR
[2020-04-08 09:41] LABS: BE(vivo) 1.3 mmol/L (-2 to +3); HCO3 29.3 mmol/L (22.0-26.0); PCO2 62.7 mmHg (35.0-45.0)
[2020-04-08 09:42] LABS: PO2 54.8 mmHg (80.0-100.0); pH 7.288 (7.360-7.450)
[2020-04-08] MEDS ORDERED: LIDOPATCH1 EACH TRANSDERM (10:04)
[2020-04-08] MEDS ORDERED: LASIX 20 MG TAB20 MG PO (10:04)
[2020-04-08] MEDS ORDERED: TYLENOL325 MG PO (10:04)
[2020-04-08] MEDS ORDERED: IPRAT-ALBUT 0.5-3 ML INH ×2 (10:04)
[2020-04-08] MEDS ORDERED: BISACODYL10 MG RECTAL (10:04)
[2020-04-08] MEDS ORDERED: PROTONIX 20 MG20 MG PO (10:04)
[2020-04-08] MEDS ORDERED: FOLIC ACID1 MG PO (10:04)
[2020-04-08] MEDS ORDERED: MIRALAX17 GM PO (10:04)
--- NOTE | 2020-04-08 10:53 | NUR ---
PT LETHARGIC, BUT AROUSABLE THIS MORNING. ALERT AND ORIENTED TIMES THREE. VSS. 91% 4L O2. PT WAS ABLE TO TAKE HIS MEDS WITHOUT ISSUES THIS MORNING, BUT REFUSED TO EAT BREAKFAST. WILL CONTINUE TO MONITOR.
--- NOTE | 2020-04-10 17:22 | HC ---
[facility] [place] [address] CONSULTATION Name: ENE MANZO Room #: 511-P [facility] IN M.R.#: [id number] Admission: 03/30/20 Attend Phys: Josias Delgado MD Discharge: 04/08/20 Date of : 33 Report #: [id number] THIS REPORT FOR: cc: Dinora Bullock MD, Julie MD Deutch,Torsten Taylor. PhD ~ DATE OF SERVICE: 04/02/2020 NEUROBEHAVIORAL STATUS EXAM AGE: 85. ATTENDING PHYSICIAN: Josias Delgado MD COMPUTER ANIMATOR: Torsten Rodriguez, PhD CLINICAL PRESENTATION: The patient is an 85-year-old male admitted to the rehabilitation unit at [facility] for a comprehensive inpatient rehabilitation program. He carries a medical problem list that includes COPD, debilitation, non-ST elevated myocardial infarction and investigation for COVID-19. He carries a diagnosis of Parkinson's disease and dementia with use of donepezil, hypertension, hyperlipidemia. A complete description of his medical condition and history can be found in his medical record. Neuropsychological consultation was requested to provide assistance in the assessment of cognitive and emotional status and provide recommendations and services. Prior to this most recent admission, the patient was living at home with his . He has 2 adult children. He is a high school graduate. 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 He indicates that his was managing his medication and bill payment. The patient reports that he was driving independently. TECHNIQUES UTILIZED: Clinical interview, review of medical records, staff consultation and behavioral observation, mini mental status exam 2 standard version and clock drawing. EXAMINATION FINDINGS: The patient was alert and cooperative with the assessment. He was able to describe the events and the purpose for his most recent hospitalization. However, he is lacking insight into the severity of his deficits. He does not report difficulty with cognition, although he does acknowledge intermittent problems with memory and difficulty with balance. Reduced appetite is also reported. He denies anxiety or depression and states that sleep is good. The patient does not report any history of substance abuse. [facility] [address] [place] [address] CONSULTATION Name: ENE MANZO Room #: 511-P [facility] IN M.R.#: [id number] Admission: 03/30/20 Attend Phys: Josias Delgado MD Discharge: 04/08/20 Date of : 33 Report #: [id number] His performance on the MMSE 2 brief version is extremely low with a raw score of 11/16, which is a T score of 23, percentile rank of less than 1. He was 3/3 for initial registration, 4/5 for orientation to time and 4/[address]. He was 0/3 for immediate recall of 3 items after a brief time delay and distraction. Performance on the MMSE 2 standard version was extremely low with a raw score of 20/30, T score of 25, percentile rank of 1. He was 1/5 for serial sevens, 2/2 for naming, 1/1 for repetition, 3/3 for auditory comprehension. He could read and follow a single command and the patient was able to write a sentence. However, he was unable to copy a simple geometric design. He was unable to adequately draw a clock or place the numbers. The patient is presenting with severe deficits in neurocognitive functioning. While alert and oriented, he presents with impairment with memory, sustained concentration and visual spatial construction along with executive functioning and insight. 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 RECOMMENDATIONS: The patient should discontinue driving pending more thorough evaluation. The reliability and accuracy of his history is uncertain. His will need to manage medication, finances and nutrition. A structured and well organized discharge plan will help as he returns home to maintain a consistent routine. Functioning will likely improve when in a more familiar environment. His family should be informed of deficits in cognition to avoid potential safety concerns. Thank you very much for allowing me to provide the consultation on this patient. <ELECTRONICALLY SIGNED> By: Torsten Rodriguez, PhD 04/10/201721 10 40 Torsten Rodriguez, PhD /nt
== END 2020-04-08 10:00 | disposition short-term general hospital (02) | DRG 56 ==
PROVIDERS: Nurse Practitioner; Nurse Practitioner Family; ADMIT Physical Medicine & Rehabilitation; ATTEND Physical Medicine & Rehabilitation
DX: G20 Parkinson's disease (principal); I21.4 Non-ST elevation (NSTEMI) myocardial infarction; J96.01 Acute respiratory failure with hypoxia; J69.0 Pneumonitis due to inhalation of food and vomit; J44.1 Chronic obstructive pulmonary disease with (acute) exacerbation; I50.32 Chronic diastolic (congestive) heart failure; I13.0 Hypertensive heart and chronic kidney disease with heart failure and stage 1 through stage 4 chronic kidney disease, or unspecified chronic kidney disease; N39.0 Urinary tract infection, site not specified; N17.9 Acute kidney failure, unspecified; K56.7 Ileus, unspecified; R53.81 Other malaise; E78.5 Hyperlipidemia, unspecified; F02.80 Dementia in other diseases classified elsewhere, unspecified severity, without behavioral disturbance, psychotic disturbance, mood disturbance, and anxiety; F01.50 Vascular dementia, unspecified severity, without behavioral disturbance, psychotic disturbance, mood disturbance, and anxiety; R13.10 Dysphagia, unspecified; M81.0 Age-related osteoporosis without current pathological fracture; D72.829 Elevated white blood cell count, unspecified; N18.9 Chronic kidney disease, unspecified; Z79.82 Long term (current) use of aspirin; Z79.899 Other long term (current) drug therapy; Z87.891 Personal history of nicotine dependence
CPT/HCPCS: 10112

== ENCOUNTER 2020-04-08 10:05 | Inpatient (IN) | payer OTHER ==
[~2020-04-08] VITALS: Ht 185.4 cm; Wt 102.4 kg
[~2020-04-08 10:05] MED LIST changes: +BISACODYL10 MG RECTAL; +FOLIC ACID1 MG PO; +IPRAT-ALBUT 0.5-3 ML INH; +LASIX 20 MG TAB20 MG PO; +LIDOPATCH1 EACH TRANSDERM; +MIRALAX17 GM PO; +PROTONIX 20 MG20 MG PO; +TYLENOL325 MG PO
[2020-04-08 11:14] VITALS: BP 102/59
[2020-04-08 12:19] LABS: BE(vivo) 3.5 mmol/L (-2 to +3); PCO2 60.9 mmHg (35.0-45.0); PO2 77.9 mmHg (80.0-100.0); pH 7.324 (7.360-7.450); sO2 94.3 % (92.0-98.0)
[2020-04-08 16:47] VITALS: BP 101/50
--- NOTE | 2020-04-08 17:35 | NUR ---
ASSUMED CARE AT 1030. [facility] PLACED ON BIPAP AT TIME OF TRANSFER. CRITICAL ABG REPORTED TO DR MON[place]NA WITH NO NEW ORDERS. PT CONTINUES ON BIPAP WITH FEW ADJUSTMENT TO ADJUST FOR LEAKS. PT CALM AND WILL RESPOND TO YES/NO QUESTIONS. DENIES PAIN. FLUIDS AND MEDICATION GIVEN PER ORDERS. BANDAR WAS CALLED WITH ROOM CHANGE AND SPEND TIME BEDSIDE THIS AFTERNOON. FALL PRECATION IN PLACE. STAFF TO ANTICIPATE NEEDS PT UNABLE TO DEMONSTRATE CALL LIGHT.
[2020-04-08 20:00] VITALS: BP 96/51
[2020-04-08 23:08] VITALS: BP 96/51
[2020-04-09 00:30] VITALS: BP 107/57
[2020-04-09 03:23] LABS: ABSOLUTE NEUTROPHILS 3.6 thou/uL (1.4-8.2); BASOPHILS 0.1 % (0.0-2.0); HEMATOCRIT 37.2 % (42.0-52.0); HEMOGLOBIN 12.2 gm/dL (14.0-18.0); LYMPHOCYTES 37.8 % (24.0-44.0); MCH 29.8 pg (26.0-34.0); MCHC 32.7 g/dL (28.0-37.0); MCV 91.3 fL (80.0-100.0); MONOCYTES 1.7 % (1.0-8.0); PLATELET COUNT 180 thou/uL (150-400); POLYS 60.4 % (36.0-66.0); RBC 4.07 mil/uL (4.50-6.00); RDW 15.6 % (10.5-14.5); WBC 5.9 thou/uL (4.0-11.0)
[2020-04-09 03:33] LABS: CALCIUM 9.1 mg/dL (8.5-10.1); CREATININE 1.7 mg/dL (0.7-1.3); MAGNESIUM 2.8 mg/dL (1.8-2.4); POTASSIUM 5.2 mmol/L (3.5-5.1)
--- NOTE | 2020-04-09 04:31 | NUR ---
aassumed pt care at the change of shift, pt is sleeping, pt is oriented to self and place, vss, sb/sr on the monitor with bbb, denies pain, BIPAP in use, o2sats stable, bs stable, pt remains npo, incontinent of urine, condom catheter placed, meds given as per may, no acute distress noted, will continue to monitor anf follow poc
[2020-04-09 05:00] VITALS: BP 106/91
[2020-04-09 08:00] VITALS: BP 125/60
[2020-04-09 11:10] LABS: BE(vivo) 1.4 mmol/L (-2 to +3); HCO3 26.3 mmol/L (22.0-26.0); PCO2 43.1 mmHg (35.0-45.0); PO2 63.5 mmHg (80.0-100.0); pH 7.404 (7.360-7.450); sO2 92.3 % (92.0-98.0)
[2020-04-09 12:00] VITALS: BP 114/54
[2020-04-09 16:00] VITALS: BP 131/61
[2020-04-09 20:55] VITALS: BP 130/64
[2020-04-10 02:59] LABS: HEMATOCRIT 38.6 % (42.0-52.0); HEMOGLOBIN 12.2 gm/dL (14.0-18.0); MCH 28.9 pg (26.0-34.0); MCHC 31.7 g/dL (28.0-37.0); MCV 91.2 fL (80.0-100.0); RBC 4.23 mil/uL (4.50-6.00); RDW 15.5 % (10.5-14.5); WBC 12.1 thou/uL (4.0-11.0)
[2020-04-10 03:06] LABS: CALCIUM 8.8 mg/dL (8.5-10.1); CREATININE 1.6 mg/dL (0.7-1.3)
[2020-04-10 03:23] LABS: POTASSIUM 4.2 mmol/L (3.5-5.1)
[2020-04-10 04:45] VITALS: BP 126/49; BP 149/83
[2020-04-10 06:40] VITALS: BP 149/83
--- NOTE | 2020-04-10 07:21 | NUR ---
ASSUMED PT CARE AT 1900, PT IS AWAKE, ALERT AND ORIENTED, SR WITH PVCS ON THE MONITOR, ASSESSMENTS CHARTED, REMAINED NPO, MEDS GIVEN PER MAY, REMAINS INCONTINENT OF BOWEL AND BLADDER, VSS, NO ACUTE DISTRESS NOTED, PASSED ON REPORT
[2020-04-10 08:24] VITALS: BP 145/65
[2020-04-10 11:30] VITALS: BP 149/68
[2020-04-10 16:23] VITALS: BP 147/66
--- NOTE | 2020-04-10 17:00 | NUR ---
PT IS ALERT; ORIENTED TO SELF. PT HAS CONFUSION OF PLACE, SITUATION. PT NEEDS REORIENTATION OFTEN. PT HAS DEMONSTRATED SOME AGITATION, AND IRRITATION, BUT CAN BE REDIRECTED. DR MONTANA CONSULTED. BEDSIDE SWALLOW TEST CONDUCTED. RT CONSULTED. POC IS CONULTS WITH SPEECH/PT/OT AND RT; CONTINUE TO MONITOR O2 SATURATION WITH INTENT TO TRANSFER TO REHAB. FALL PRECAUTIONS IN PLACE; AIR LOSS MATTRESS IN USE. NO CONCERNS AT THIS TIME.
[2020-04-10 20:15] VITALS: BP 156/74
[2020-04-11] VITALS (9 sets, daily range): BP systolic 17–176; BP diastolic 81–128
[2020-04-11 03:09] LABS: HEMATOCRIT 36.6 % (42.0-52.0); HEMOGLOBIN 11.7 gm/dL (14.0-18.0); MCH 29.1 pg (26.0-34.0); MCV 90.7 fL (80.0-100.0); RBC 4.04 mil/uL (4.50-6.00); RDW 15.4 % (10.5-14.5); WBC 12.7 thou/uL (4.0-11.0)
[2020-04-11 03:15] LABS: CALCIUM 9.4 mg/dL (8.5-10.1); CREATININE 1.6 mg/dL (0.7-1.3); POTASSIUM 4.2 mmol/L (3.5-5.1)
--- NOTE | 2020-04-11 07:44 | NUR ---
ASSUMED CARE OF THE PATIENT AT 1900; AOX3 UPON INITIAL ASSESSMENT/ BY 2300 AOX1 WITH CONFUSION; PT REMOVED MEDICAL EQUIPMENT AND ATTEMPTED TO EXIT THE BED WITHOUT CALLING/ONETIME HALDOL DOSE ORDERED AND ADMINISTERED; ELEVATED BP/ONETIME HYDRALAZINE DOSE ADMINISTERED PER ORDER; PATIENT INCONTINENT AT TIMES/USES URINAL AT TIMES; 9LPM NC WITH SAT PROBE/ DESATs AT TIMES; RT CONSULTED AND ADMINISTERED BREATHING TREATMENT AND TITRATED O2 FROM 5LPM NC TO 9LPM NC WITH IMPROVED O2 SAT; WILL CONTINUE TO MONITOR AND FOLLOW POC.
--- NOTE | 2020-04-11 14:38 | NUR ---
Patient admits from 5N rehab unit with SOA. Patient initally admitted to CCU mar 25 with SOA/weakness. Patient resides at home with . He was able to uses a RW at home and ambulate. Patient prev approx 5 months ago was at [facility] post pna. Patient then transferred to 5N Mar 30. Transferred back to CCU with SOA. Patient on 9 liters of oxygen, sleeping soundly. 5N following unsure if candidate for acute rehab vs skilled. casemgt following.
--- NOTE | 2020-04-11 19:46 | NUR ---
PT CARE ASSUMED AT 0700. ASSESSMENTS CHARTED. MEDICATIONS CHARTED. CARIE IV. URINAL/INCONTINENCE. SINUS RHYTHM. CONT POX. O2 10 LPM NC. PT FREQUENTLY PULLS OFF HIS GOWN, LEADS AND NC. ACHS. PT SOMETIMES FEEDS HIMSELF AND SOMETIMES REQUIRES FEEDING. SUNDOWNERS.
[2020-04-12] VITALS (11 sets, daily range): BP systolic 147–186; BP diastolic 61–99
--- NOTE | 2020-04-12 00:48 | NUR ---
CONFUSED,TRYING TO PULL HIS O2 OFF,DESATS IN THE 80%.RT TX GIVEN.IV ACCESS GOT INFILTRATED,REPLACED A NEW ONE BY HOUSE SUP AFTER SEVERAL TRIES FROM RN'S.PT GETTING LETHARGIC BUT AROUSABLE.PLACED ON BIPAP.MONITOR SHOWS SR.POC CONTINUED.
[2020-04-12 05:03] LABS: CALCIUM 9.3 mg/dL (8.5-10.1); CREATININE 1.2 mg/dL (0.7-1.3); POTASSIUM 5.7 mmol/L (3.5-5.1)
[2020-04-12 05:14] LABS: HEMATOCRIT 40.6 % (42.0-52.0); HEMOGLOBIN 12.9 gm/dL (14.0-18.0); MCH 29.2 pg (26.0-34.0); MCHC 31.8 g/dL (28.0-37.0); MCV 91.8 fL (80.0-100.0); RBC 4.43 mil/uL (4.50-6.00); RDW 15.8 % (10.5-14.5); WBC 10.6 thou/uL (4.0-11.0)
--- NOTE | 2020-04-12 10:44 | NUR ---
WOUND CARE F/U; ASSESS BUTTOCKS/SCROTAL AREA W/ TEXTILE SCREEN MAKER DOREEN, HEALING, MUCH IMPROVEMENT, LESS RAFITA, STILL INCONT URINE, STAFF STATES TRIED USING EXTERNAL CATH BUT DIFFICULTY STAYING ON, PT PULLING AT O2 ETC. CONFUSED BUT COOPERATIVE RECOMMENDATIONS; CONT BID AND PRN JEANETH CARE W/ ANTIFUNGAL CREAM TRAVEL ADMINISTRATOR AWARE
[2020-04-12 15:15] LABS: BE(vivo) 3.2 mmol/L (-2 to +3); HCO3 29.5 mmol/L (22.0-26.0); PCO2 52.7 mmHg (35.0-45.0); pH 7.366 (7.360-7.450); sO2 83.2 % (92.0-98.0)
[2020-04-12 15:16] LABS: PO2 49.5 mmHg (80.0-100.0)
--- NOTE | 2020-04-12 19:00 | NUR ---
PT CARE ASSUMED AT 0700. ASSESSMENTS CHARTED. MEDICATIONS CHARTED. TRAN IV. RIJ 3L PICC PLACED BEFORE TRANSFER TO ICU - 243. BIPAP 14/6 70%. INCONTINENT. SCROTOM REDNESS, Z-GUARD. ABG PRIOR TO TRANSFER; 7.36/52.7/49.5/29.5. PT PLACED ON BIPAP AFTER NOC RN HAD TROUBLE RAISING O2 SATS ON 10 LPM NC.
--- NOTE | 2020-04-12 19:24 | NUR ---
PT TRANSFER FROM CCU TO ICU AT 1830 ON BIPAP. PT RESTLESS BUT REDIRECTABLE. CENTRAL LINE WAS PLACED BY IV ACCESS TEAM, CXR OBTAINED AND CONFIRMED. PT NEEDS OLMOS CATHETER. PT WAS ORIENTED TO UNIT. SAFE IN BED WITH BED ALARM ON AND ALL FOUR RALES UP.
[2020-04-13] VITALS (18 sets, daily range): BP systolic 119–179; BP diastolic 56–134
[2020-04-13 04:28] LABS: HEMATOCRIT 30.6 % (42.0-52.0); MCH 29.4 pg (26.0-34.0); MCHC 32.5 g/dL (28.0-37.0); MCV 90.5 fL (80.0-100.0); RBC 3.38 mil/uL (4.50-6.00); RDW 15.5 % (10.5-14.5); WBC 8.7 thou/uL (4.0-11.0)
[2020-04-13 04:34] LABS: ALBUMIN 1.8 g/dL (3.4-5.0); CALCIUM 7.7 mg/dL (8.5-10.1); CREATININE 1.3 mg/dL (0.7-1.3); MAGNESIUM 2.2 mg/dL (1.8-2.4); PHOSPHORUS 2.1 mg/dL (2.5-4.9); POTASSIUM 4.1 mmol/L (3.5-5.1); TOTAL BILIRUBIN 0.5 mg/dL (0.2-1.0); TOTAL PROTEIN 5.8 g/dL (6.4-8.2)
--- NOTE | 2020-04-13 07:42 | NUR ---
Pt TRANSFERRED TO ICU. WILL PLACE ON HOLD AND AWAIT NEW ORDERS TO RESUME WHEN APPROPRIATE
--- NOTE | 2020-04-13 10:40 | NUR ---
Nutrition: To better meet needs REC individualized TPN of 7% aa, 15% dextrose, 2.9% lipids at 65 mL/hr. REC correct phos.
[2020-04-13 11:14] LABS: MAGNESIUM 2.4 mg/dL (1.8-2.4); PHOSPHORUS 2.2 mg/dL (2.5-4.9)
[2020-04-13 13:17] LABS: BE(vivo) 7.4 mmol/L (-2 to +3); HCO3 32.7 mmol/L (22.0-26.0); PCO2 49.4 mmHg (35.0-45.0); pH 7.439 (7.360-7.450); sO2 86.3 % (92.0-98.0)
[2020-04-13 13:19] LABS: PO2 50.1 mmHg (80.0-100.0)
--- NOTE | 2020-04-13 16:59 | HC ---
[facility] [place] [address] CONSULTATION Name: ENE MANZO Room #: 243-P ADM IN M.R.#: [id number] Admission: 04/08/20 Attend Phys: Fortunato Dumont MD Discharge: Date of : 31 Report #: [id number] THIS REPORT FOR: cc: Dinora Bullock MD, Julie MD Barry,Ruperto Stephens MD ~ DATE OF SERVICE: 04/13/2020 INFECTIOUS DISEASE CONSULTATION ATTENDING PHYSICIAN: Dr. Dumont. REASON FOR EVALUATION: COVID-19 infection, complicated by pneumonitis and respiratory failure. HISTORY OF SUBJECTIVE: Chart reviewed, patient examined. This is an 85-year-old with extensive medical history. He has actually been hospitalized over the course of last 3 weeks. Initially was admitted with progressive dyspnea. Initial coronavirus testing was negative, was found to have acute myocardial infarction, underwent treatment for that and at one point developed some renal failure, felt to be secondary to diuretics. Due to debility he was transitioned to the rehabilitation wing; however, over the course of several days, he had progressive dyspnea, was readmitted to the acute care hospital and due to concerns about increasing encephalopathy, more respiratory discomfort, x-ray changes suggested bilateral infiltrates, he was retested and was found to be positive for coronavirus. Ultimately, he has been placed on BiPAP. He is transitioned to the Intensive Care unit, where he has been seen. He appears to be mildly encephalopathic somewhat difficult to ascertain any additional history given the combination of factors including the BiPAP. He has been afebrile. Most recent ABGs on FiO2 70% showed a pO2 of 49.5, pCO2 of 52.7 and blood sugar elevated at 469 on most recent lab, albumin 1.8. ProBNP markedly elevated at 18,783. He has been empirically on therapy with Zosyn. ALLERGIES: None known. CURRENT MEDICATIONS: Include zinc, TPN, methylprednisolone, ascorbic acid, thiamine, insulin lispro, famotidine, enalapril, metoprolol as needed, aspirin, atorvastatin, Sinemet, insulin glargine, Zosyn, albuterol, ____ inhaler, ondansetron, pantoprazole. PAST MEDICAL HISTORY: Has known diabetes mellitus complicated by vasculopathy, known coronary artery disease with recent acute myocardial infarction, hypertension, hyperlipidemia, has dementia, Parkinson's, has history of depression. [address] [address] CONSULTATION Name: ENE MANZO Room #: 243-P [facility] IN [facility].#: [id number] Admission: 04/08/20 Attend Phys: Fortunato Dumont MD Discharge: Date of : 31 Report #: [id number] SOCIAL HISTORY: Former smoker. No ethanol. No illicit drug use. FAMILY HISTORY: Noncontributory. REVIEW OF SYSTEMS: Not reliably obtained. PHYSICAL EXAMINATION: GENERAL: He appears chronically ill and undernourished. He is in moderate distress. VITAL SIGNS: Temperature 98.6, pulse 68, respirations 32, blood pressure 176/78. SKIN: Warm, dry. HEENT: Unremarkable except the BiPAP in place. NECK: Supple. Extraocular muscles intact. LUNGS: Scattered coarse breath sounds. HEART: Distant, regular. I do not appreciate a murmur. ABDOMEN: Mildly distended, somewhat firm. No apparent tenderness. GENITOURINARY AND RECTAL: Deferred. LABORATORY DATA: Most recent ABGs now pH 7.439, pCO2 of 49.4, pO2 of 50.1, FiO2 of 60% BiPAP. Chest x-ray shows stable diffuse interstitial and bibasilar alveolar infiltrates. Procalcitonin of 0.2. Most recent glucose of 188. Coronavirus PCR was positive, after a couple negative. Electrolytes: Sodium 148, potassium 4.1, chloride 110, bicarbonate is 33, anion gap of 5, BUN and creatinine 26 and 1.3, glucose ____this morning was 469. AST of 25, ALT of 40, albumin 1.8, total protein 5.8, estimated GFR of 52. Prealbumin of 10.1. CBC: White count of 8.7, H and H 10.0 and 30.6, platelets of 139. ASSESSMENT: COVID-19 infection, complicated by pneumonitis and respiratory failure with a host of comorbidities including diabetes mellitus with vasculopathy, has dementia, Parkinson's, malnutrition. We will continue current therapy with combination of cephalosporins and vancomycin. In addition, we will add Remdesivir and ivermectin to his regimen in addition to the corticosteroids and vitamins. He remains critically ill. Suspect he will have clinical deterioration prior to improvement. At this point, we will optimize his nutritional status as able. <ELECTRONICALLY SIGNED> By: Ruperto Medrano MD 04/13/20 1659 [id number] Ruperto Medrano MD /nt
--- NOTE | 2020-04-13 17:09 | NUR ---
PT SEEN TODAY BY // PT IS NOT PROGRESSING TOWARDS DISCHARGE. THERE WERE TALKS OF INTUBATING THE PT TODAY R/T INABILITY TO TOLERATE BIPAP, INCREASING ENCEPHALOPATHY, WELL PTS INCREASING RESPIRATORY RATE. PER INTUABTION WAS GOING TO BE PURSUED BUT AFTER SPEAKING WITH THE IT WAS DETERMINED THAT NO CODE WAS MORE APPROPERIATE AND CONSULTS FOR HAVE BEEN PLACED WHICH RN CONTACTED FOR. PRECEDEX GTT HAS BEEN STARTED FOR THE PT. DR. SUTTON SAW THE PT WELL. PER MD IT IS OKAY TO PROCEED WITHOUT GIVING THE PO MEDICATIONS PNA/COVID19 ADDRESSING IS MORE IMPORTANT AT THIS TIME. RN WILL CONTINUE TO MONITOR AND UPDATE NECESSARY
[2020-04-14] VITALS (29 sets, daily range): BP systolic 98–180; BP diastolic 56–114
[2020-04-14 06:02] LABS: ALBUMIN 1.8 g/dL (3.4-5.0); DIRECT BILIRUBIN 0.2 mg/dL (<0.1-0.2); TOTAL BILIRUBIN 0.4 mg/dL (0.2-1.0); TOTAL PROTEIN 5.3 g/dL (6.4-8.2)
[2020-04-14 06:03] LABS: CREATININE 1.1 mg/dL (0.7-1.3); MAGNESIUM 2.4 mg/dL (1.8-2.4)
[2020-04-14 06:13] LABS: POTASSIUM 5.4 mmol/L (3.5-5.1)
--- NOTE | 2020-04-14 12:36 | NUR ---
WOUND CARE F/U; THE SCROTUN WOUND IS HEALED AND NO LONGER TENDER. THE PATIENT IS ALERT AND ORIENTED. NO SCROTAL PAIN AND NO OTHER CONCERNS. RECOMMEDNATIONS; -CONTINUE ANTIFUNGAL CREAM. -D/C WOUND CARE RECONSULT IF NEEDED. RN PRESENT
--- NOTE | 2020-04-14 14:40 | NUR ---
PT TRANSITIONED TO NASAL CANULA FROM BIPAP 1435. MORPHINE GIVEN. ROLANDO D/C @1445
--- NOTE | 2020-04-14 15:07 | NUR ---
cm notified by bedside nurse that he on comfort care. will cont following as needed for dc needs.
--- NOTE | 2020-04-14 15:46 | NUR ---
[address] DR. URIAS... OK TO START MORPHINE DRIP @2MG/HR. TITRATE 1 MG EVERY 30MINS TOLERATED. CHANGE PRN IVPUSH TO MORPHINES ORDERS TO [id number]. INCREASE O2 AND WEAN PT BECOMES MORE COMFORTABLE. GIVE 6MG IVPUSH MORPHINE NOW
--- NOTE | 2020-04-14 19:18 | NUR ---
assumed care of pt 0700. 1200 pt tachypenic on 100% bipap. previous talks of not intubating pt by dpoa lead to page of Dr. cameron. comfort care orders placed per Shivani. pt 1645. [facility] called. Family Notifed. Awaiting family service info.
== END 2020-04-14 16:46 | DRG 871 ==
LOC: 2N 10:05 → ICU 10:42 → 2N 11:08 → ICU 04-12 17:56
PROVIDERS: Internal Medicine; Internal Medicine Pulmonary Disease; Nurse Practitioner; Specialist; ADMIT Hospitalist; ATTEND Hospitalist
PROC: 5A09457 Assistance with Respiratory Ventilation, 24-96 Consecutive Hours, Continuous Positive Airway Pressure (ICD-10-PCS; principal; 2020-04-08)
PROC: 5A09357 Assistance with Respiratory Ventilation, Less than 24 Consecutive Hours, Continuous Positive Airway Pressure (ICD-10-PCS; 2020-04-10)
PROC: 5A09457 Assistance with Respiratory Ventilation, 24-96 Consecutive Hours, Continuous Positive Airway Pressure (ICD-10-PCS; 2020-04-11)
PROC: 5A0935A Assistance with Respiratory Ventilation, Less than 24 Consecutive Hours, High Flow/Velocity Cannula (ICD-10-PCS; 2020-04-11)
PROC: 02HV33Z Insertion of Infusion Device into Superior Vena Cava, Percutaneous Approach (ICD-10-PCS; 2020-04-12)
PROC: 3E0336Z Introduction of Nutritional Substance into Peripheral Vein, Percutaneous Approach (ICD-10-PCS; 2020-04-13)
PROC: XW033E5 Introduction of Remdesivir Anti-infective into Peripheral Vein, Percutaneous Approach, New Technology Group 5 (ICD-10-PCS; 2020-04-13)
DX: A41.89 Other specified sepsis (principal); J69.0 Pneumonitis due to inhalation of food and vomit; J96.01 Acute respiratory failure with hypoxia; U07.1 COVID-19; J12.82 Pneumonia due to coronavirus disease 2019; J96.02 Acute respiratory failure with hypercapnia; E43 Unspecified severe protein-calorie malnutrition; I21.4 Non-ST elevation (NSTEMI) myocardial infarction; G92 Toxic encephalopathy; N17.9 Acute kidney failure, unspecified; K56.7 Ileus, unspecified; I50.32 Chronic diastolic (congestive) heart failure; J44.1 Chronic obstructive pulmonary disease with (acute) exacerbation; E87.0 Hyperosmolality and hypernatremia; I13.0 Hypertensive heart and chronic kidney disease with heart failure and stage 1 through stage 4 chronic kidney disease, or unspecified chronic kidney disease; I25.10 Atherosclerotic heart disease of native coronary artery without angina pectoris; E78.5 Hyperlipidemia, unspecified; F32.9 Major depressive disorder, single episode, unspecified; N18.9 Chronic kidney disease, unspecified; G20 Parkinson's disease; F02.80 Dementia in other diseases classified elsewhere, unspecified severity, without behavioral disturbance, psychotic disturbance, mood disturbance, and anxiety; R13.10 Dysphagia, unspecified; F15.90 Other stimulant use, unspecified, uncomplicated; E11.22 Type 2 diabetes mellitus with diabetic chronic kidney disease; Z51.5 Encounter for palliative care; T50.2X5A Adverse effect of carbonic-anhydrase inhibitors, benzothiadiazides and other diuretics, initial encounter; Z87.891 Personal history of nicotine dependence; I25.2 Old myocardial infarction; Z79.82 Long term (current) use of aspirin; Z79.899 Other long term (current) drug therapy; Y92.89 Other specified places as the place of occurrence of the external cause
CPT/HCPCS: 10078; 10081; 10797